=== PATIENT | female | born 1980 | race Caucasian/White ===

== ENCOUNTER → 2016-10-29 | Outpatient (CLI) | payer OTHER ==
[~2016-10-29] MED LIST: ALBUTEROL0.09 MG/A2 IH; AMOXICILLIN500 M2 PO; ANAPROX DS550 MG PO; AUGMENTIN 875 M1 TAB PO; AUGMENTIN 875875 MG PO; BENTYL10 MG PO; BUPROPION HCL300 MG PO; Bactrim Ds 8001 TAB PO; CIPRODEX 0.3%-7.5 ML OT; CITALOPRAM HYDR20 MG PO; CLARITIN10 MG PO; CLINDAMYCIN300 MG PO; DELTASONE10 MG PO; DOXYCYCLINE100 M3 PO; GEMFIBROZIL600 MG PO; HYDROCHLOROTHIA25 MG PO; IBU-8800 MG PO; K-DUR 2020 MEQ PO; MACROBID100 M1 PO; MEDROL DOSEPAK4 MG PO; MIRALAX POWDER255 GM PO; MOTRIN800 MG PO; OMNICEF300 MG PO; PENICILLIN VK500 MG PO; PREDNICOT20 MG PO; PREDNISONE20 M1 PO; PROVENTIL0.09 MG/AC IH; ROBITUSSIN AC 10 MG/ PO; SPRINTEC 35 MCG1 TA1 PO; TRAMADOL HCL50 MG PO; TRAMADOL50 MG PO; TRIMOX500 MG PO; ULTRAM50 MG PO; VIBRAMYCIN100 MG PO; VOLTAREN50 M1 PO; Vicodin 5/500 505 MG PO; XANAX0.25 MG PO; XANAX0.5 MG PO; ZYRTEC10 MG PO
[2016-10-29 10:13] LABS: BASO % 0.4 % (0.0-1.0); EOS # 0.1 10*3/uL (0.0-0.4); HEMATOCRIT 39.3 % (37.0-47.0); HEMOGLOBIN 13.3 g/dl (12.0-16.0); LYMPH # 1.9 10*3/uL (1.3-4.4); MEAN CELL VOLUME 90.3 fl (81.0-99.0); MEAN CORPUSCULAR HGB 30.6 pg (27.0-31.0); MEAN CORPUSCULAR HGB CONC 33.8 g/dl (33.0-37.0); MEAN PLATELET VOLUME 9.1 fl (9.6-12.3); MONO # 0.5 10*3/uL (0.1-1.0); MONO % 9.3 % (3.0-9.0); NEUT # 2.8 10*3/uL (2.3-7.9); NEUT % 51.9 % (47.0-73.0); PLATELET COUNT AUTOMATED 350 10*3/uL (130-400); RED BLOOD COUNT 4.35 10*6/uL (4.10-5.10); RED CELL DISTRI WIDTH 13.8 % (0-14.5); WHITE BLOOD COUNT 5.4 10*3/uL (4.8-10.8)
[2016-10-29 10:29] LABS: HEMOGLOBIN A1c 5.8 % (4.8-5.6)
[2016-10-29 10:48] LABS: ALBUMIN 3.6 gm/dl (3.1-4.5); ALKALINE PHOSPHATASE 61 U/L (45-117); BILIRUBIN, TOTAL 0.2 mg/dl (0.2-1.0); BUN 22 mg/dl (7-24); CARBON DIOXIDE 26 mmol/L (21-32); CHLORIDE 104 mmol/L (98-107); CHOLESTEROL 174 mg/dL (<200); EST GLOM FILT AFRICAN AMERICAN > 60 ml/min; GLUCOSE 102 mg/dL (65-99); HDL CHOLESTEROL 49 mg/dl (40-60); LDL CHOLESTEROL 81 mg/dL (9-159); POTASSIUM 3.9 mmol/L (3.5-5.1); SGOT/AST 9 IU/L (3-35); SGPT/ALT 17 U/L (12-78); SODIUM 141 mmol/L (136-145); TOTAL PROTEIN 7.2 gm/dL (6.4-8.2); TRIGLYCERIDES 218 mg/dl (<150); VLDL CHOLESTEROL 44 mg/dL (6-40)
[2016-10-29 11:18] LABS: PTH INTACT 54.7 pg/mL (14.0-72.0); VITAMIN D, 25-HYDROXY 12.7 ng/mL (30-100)
== END | disposition home or self-care (01) ==
LOC: LAB 09:54
PROVIDERS: Nurse Practitioner Family
DX: E78.4 Other hyperlipidemia (principal); M79.609 Pain in unspecified limb; F32.9 Major depressive disorder, single episode, unspecified; I10 Essential (primary) hypertension; G43.909 Migraine, unspecified, not intractable, without status migrainosus; E55.9 Vitamin D deficiency, unspecified

== ENCOUNTER 2017-01-11 17:04 | Emergency (ER) | payer OTHER ==
[~2017-01-11] VITALS: Ht 162.5 cm; Wt 134.3 kg
[2017-01-11 17:17] VITALS: BP 129/97
[2017-01-11 18:08] LABS: BILIRUBIN NEGATIVE (NEGATIVE); BLOOD 3+ (NEGATIVE); CLARITY CLEAR (CLEAR); COLOR YELLOW (YELLOW); GLUCOSE NEGATIVE (NEGATIVE); KETONE NEGATIVE (NEGATIVE); LEUKO ESTERASE 1+ (NEGATIVE); NITRITE NEGATIVE (NEGATIVE); PH 7.5 (5.0-9.0); PROTEIN NEGATIVE (NEGATIVE); UROBILINOGEN 0.2 E.U./dl (0.2-1.0)
[2017-01-11 18:20] LABS: BACTERIA 4+; RBC TNTC rbc/hpf (0-2); URINE REFLEX COMMENT YES (NO)
[2017-01-11] MEDS ORDERED: CYCLOBENZAPRINE5 M3 PO (20:18)
[2017-01-11] MEDS ORDERED: BACTRIM DS 8001 TA1 PO (20:18)
== END 2017-01-11 20:23 | disposition home or self-care (01) ==
LOC: ED 17:04
PROVIDERS: Nurse Practitioner Family
DX: N30.01 Acute cystitis with hematuria (principal); M54.5 Low back pain; F17.200 Nicotine dependence, unspecified, uncomplicated; Z90.49 Acquired absence of other specified parts of digestive tract; Z79.899 Other long term (current) drug therapy; Z88.1 Allergy status to other antibiotic agents

== ENCOUNTER → 2017-03-23 | Outpatient (CLI) | payer OTHER ==
[~2017-03-23] MED LIST changes: +BACTRIM DS 8001 TA1 PO; +CYCLOBENZAPRINE5 M3 PO
[2017-03-23 10:12] LABS: BASO % 0.3 % (0.0-1.0); EOS # 0.2 10*3/uL (0.0-0.4); EOS % 2.2 % (1.0-4.0); HEMATOCRIT 36.5 % (37.0-47.0); HEMOGLOBIN 12.4 g/dl (12.0-16.0); LYMPH # 1.8 10*3/uL (1.3-4.4); LYMPH % 26.3 % (27.0-41.0); MEAN CELL VOLUME 90.8 fl (81.0-99.0); MEAN CORPUSCULAR HGB 30.8 pg (27.0-31.0); MEAN PLATELET VOLUME 9.2 fl (9.6-12.3); MONO # 0.5 10*3/uL (0.1-1.0); MONO % 6.5 % (3.0-9.0); NEUT # 4.5 10*3/uL (2.3-7.9); NEUT % 64.4 % (47.0-73.0); PLATELET COUNT AUTOMATED 369 10*3/uL (130-400); RED BLOOD COUNT 4.02 10*6/uL (4.10-5.10); RED CELL DISTRI WIDTH 12.9 % (0-14.5); WHITE BLOOD COUNT 6.9 10*3/uL (4.8-10.8)
[2017-03-23 10:46] LABS: ALBUMIN 3.5 gm/dl (3.1-4.5); BUN 20 mg/dl (7-24); CARBON DIOXIDE 28 mmol/L (21-32); CHLORIDE 106 mmol/L (98-107); CHOLESTEROL 185 mg/dL (<200); GLUCOSE 99 mg/dL (65-99); HDL CHOLESTEROL 39 mg/dl (40-60); SODIUM 142 mmol/L (136-145)
[2017-03-23 10:49] LABS: ALKALINE PHOSPHATASE 68 U/L (45-117); BILIRUBIN, TOTAL 0.2 mg/dl (0.2-1.0); EST GLOM FILT AFRICAN AMERICAN > 60 ml/min; LDL CHOLESTEROL 113 mg/dL (9-159); SGOT/AST 10 IU/L (3-35); SGPT/ALT 18 U/L (12-78); TRIGLYCERIDES 165 mg/dl (<150); VLDL CHOLESTEROL 33 mg/dL (6-40)
== END | disposition home or self-care (01) ==
LOC: LAB 09:59
PROVIDERS: Nurse Practitioner Family
DX: E78.4 Other hyperlipidemia (principal); I10 Essential (primary) hypertension

== ENCOUNTER → 2017-03-25 | Outpatient (CLI) | payer OTHER ==
[2017-03-25 11:33] LABS: PTH INTACT 34.1 pg/mL (14.0-72.0)
== END | disposition home or self-care (01) ==
LOC: LAB 09:36
PROVIDERS: Nurse Practitioner Family
DX: E78.4 Other hyperlipidemia (principal); E55.9 Vitamin D deficiency, unspecified

== ENCOUNTER → 2017-03-28 | Outpatient (CLI) | payer OTHER | END | disposition home or self-care (01) | LOC: LAB 13:19 | DX: E87.6 Hypokalemia (principal) ==

== ENCOUNTER → 2017-06-15 | Outpatient (CLI) | payer OTHER | END | disposition home or self-care (01) | LOC: LAB 11:09 | DX: E78.4 Other hyperlipidemia (principal) ==

== ENCOUNTER → 2018-12-12 | Outpatient (CLI) | payer BC ==
[~2018-12-12] MED LIST changes: +ALBUTEROL S5 MG/1 ML INH; +CEFTRIAXONE2 G1 IV; +DURAGESIC1 EAC2 TD; +FLAGYL500 MG PO; +HYDROCHLOROTHIA25 M1 PO; +OXYGEN NAS; +PEPCID AC20 MG PO; +PREDNISONE10 MG PO; +TOBRADEX 0.3-03.5 GM OPH; +VICO10300 PO; +VICODIN 5-3001 EACH PO; +VITAMIN D32000 UNI1 PO
[2018-12-12 10:05] VITALS: BP 146/80
== END | disposition home or self-care (01) ==
LOC: PICC 08:46
DX: Z45.2 Encounter for adjustment and management of vascular access device (principal); A09 Infectious gastroenteritis and colitis, unspecified; F17.210 Nicotine dependence, cigarettes, uncomplicated; J45.909 Unspecified asthma, uncomplicated; E66.01 Morbid (severe) obesity due to excess calories; Z88.1 Allergy status to other antibiotic agents; Z98.890 Other specified postprocedural states; Z82.49 Family history of ischemic heart disease and other diseases of the circulatory system; Z83.3 Family history of diabetes mellitus; Z82.5 Family history of asthma and other chronic lower respiratory diseases; Z84.1 Family history of disorders of kidney and ureter

== ENCOUNTER 2018-12-19 09:58 | Emergency (ER) | payer BC, OTHER ==
[~2018-12-19] VITALS: Wt 141.5 kg
[~2018-12-19 09:58] MED LIST changes: -ALBUTEROL S5 MG/1 ML INH; -CEFTRIAXONE2 G1 IV; -FLAGYL500 MG PO; -HYDROCHLOROTHIA25 M1 PO; -OXYGEN NAS; -PREDNISONE10 MG PO; -TOBRADEX 0.3-03.5 GM OPH; -VICODIN 5-3001 EACH PO; -VITAMIN D32000 UNI1 PO
[2018-12-19 10:00] VITALS: BP 153/100
[2019-01-08] MEDS ORDERED: VICODIN 5-3001 EACH PO (22:36)
[2019-01-08] MEDS ORDERED: OXYGEN NAS (22:37)
[2019-01-08] MEDS ORDERED: ALBUTEROL S5 MG/1 ML INH (22:38)
[2019-01-11] MEDS ORDERED: CEFTRIAXONE2 G1 IV (10:16)
[2019-01-11] MEDS ORDERED: FLAGYL500 MG PO (10:16)
[2019-01-11] MEDS ORDERED: PREDNISONE10 MG PO (14:51)
[2019-01-11] MEDS ORDERED: TOBRADEX 0.3-03.5 GM OPH (14:51)
[2019-01-11] MEDS ORDERED: VITAMIN D32000 UNI1 PO (14:51)
[2019-01-21] MEDS ORDERED: HYDROCHLOROTHIA25 M1 PO (21:54)
== END 2018-12-19 13:23 | disposition home or self-care (01) ==
LOC: ED 09:58
DX: T82.838A Hemorrhage due to vascular prosthetic devices, implants and grafts, initial encounter (principal); J44.9 Chronic obstructive pulmonary disease, unspecified; I10 Essential (primary) hypertension; E66.01 Morbid (severe) obesity due to excess calories; F17.200 Nicotine dependence, unspecified, uncomplicated; Z88.1 Allergy status to other antibiotic agents; Z91.040 Latex allergy status; Z88.8 Allergy status to other drugs, medicaments and biological substances; Y83.8 Other surgical procedures as the cause of abnormal reaction of the patient, or of later complication, without mention of misadventure at the time of the procedure

== ENCOUNTER 2019-01-16 10:22 | Emergency (ER) | payer BC, OTHER ==
[~2019-01-16] VITALS: Ht 160 cm; Wt 143.8 kg
[~2019-01-16 10:22] MED LIST changes: +ALBUTEROL S5 MG/1 ML INH; +CEFTRIAXONE2 G1 IV; +FLAGYL500 MG PO; +OXYGEN NAS; +PREDNISONE10 MG PO; +TOBRADEX 0.3-03.5 GM OPH; +VICODIN 5-3001 EACH PO; +VITAMIN D32000 UNI1 PO
[2019-01-16 10:23] VITALS: BP 152/86
--- NOTE | 2019-01-16 11:31 | NUR ---
20G 10CM POWERGLIDE MIDLINE RIGHT ARM. PT TOLERATED WELL. Jacobo Ricci RN.
[2019-01-16 11:33] LABS: HEMATOCRIT 36.6 % (37.0-47.0); HEMOGLOBIN 11.4 g/dl (12.0-16.0); MEAN CELL VOLUME 89.7 fl (81.0-99.0); MEAN CORPUSCULAR HGB 27.9 pg (27.0-31.0); MEAN CORPUSCULAR HGB CONC 31.1 g/dl (33.0-37.0); MEAN PLATELET VOLUME 9.2 fl (9.6-12.3); PLATELET COUNT AUTOMATED 416 10*3/uL (130-400); RED BLOOD COUNT 4.08 10*6/uL (4.10-5.10); RED CELL DISTRI WIDTH 16.8 % (0-14.5)
[2019-01-16 11:48] LABS: ALBUMIN 3.2 gm/dl (3.1-4.5); ALKALINE PHOSPHATASE 64 U/L (45-117); BUN 24 mg/dl (7-24); CHLORIDE 105 mmol/L (98-107); CREATININE 0.73 mg/dL (0.55-1.02); POTASSIUM 3.2 mmol/L (3.5-5.1); SGOT/AST 14 IU/L (3-35); SGPT/ALT 28 U/L (12-78); SODIUM 141 mmol/L (136-145); TOTAL PROTEIN 6.7 gm/dL (6.4-8.2)
[2019-01-16 11:58] LABS: TOTAL CELLS COUNTED 100 #CELLS
[2019-01-16 11:59] LABS: PLATELET SUFFICIENCY HIGH (NORMAL)
[2019-01-21] MEDS ORDERED: HYDROCHLOROTHIA25 M1 PO (21:54)
== END 2019-01-16 12:18 | disposition home or self-care (01) ==
LOC: ED 10:22
PROVIDERS: Emergency Medicine
DX: T82.898A Other specified complication of vascular prosthetic devices, implants and grafts, initial encounter (principal); J44.9 Chronic obstructive pulmonary disease, unspecified; I10 Essential (primary) hypertension; E66.01 Morbid (severe) obesity due to excess calories; G47.33 Obstructive sleep apnea (adult) (pediatric); F17.200 Nicotine dependence, unspecified, uncomplicated; M19.90 Unspecified osteoarthritis, unspecified site; Z90.49 Acquired absence of other specified parts of digestive tract; Z98.890 Other specified postprocedural states; Z79.899 Other long term (current) drug therapy; Z88.1 Allergy status to other antibiotic agents; Z91.040 Latex allergy status; Z88.8 Allergy status to other drugs, medicaments and biological substances; Y92.89 Other specified places as the place of occurrence of the external cause

== ENCOUNTER → 2019-05-01 | Outpatient (CLI) | payer OTHER ==
[~2019-05-01] MED LIST changes: +HYDROCHLOROTHIA25 M1 PO
[2019-05-01 14:22] LABS: BASO % 0.4 % (0.0-1.0); EOS # 0.1 10*3/uL (0.0-0.4); EOS % 1.7 % (1.0-4.0); HEMATOCRIT 37.5 % (37.0-47.0); HEMOGLOBIN 11.9 g/dl (12.0-16.0); LYMPH # 1.5 10*3/uL (1.3-4.4); LYMPH % 29.3 % (27.0-41.0); MEAN CELL VOLUME 87.6 fl (81.0-99.0); MEAN CORPUSCULAR HGB 27.8 pg (27.0-31.0); MEAN CORPUSCULAR HGB CONC 31.7 g/dl (33.0-37.0); MEAN PLATELET VOLUME 9.2 fl (9.6-12.3); MONO # 0.3 10*3/uL (0.1-1.0); MONO % 6.6 % (3.0-9.0); NEUT # 3.2 10*3/uL (2.3-7.9); NEUT % 61.8 % (47.0-73.0); PLATELET COUNT AUTOMATED 374 10*3/uL (130-400); RED BLOOD COUNT 4.28 10*6/uL (4.10-5.10); RED CELL DISTRI WIDTH 15.5 % (0-14.5); WHITE BLOOD COUNT 5.2 10*3/uL (4.8-10.8)
[2019-05-01 14:53] LABS: ALBUMIN 3.8 gm/dl (3.1-4.5); ALKALINE PHOSPHATASE 62 U/L (45-117); BUN 20 mg/dl (7-24); CHLORIDE 104 mmol/L (98-107); CREATININE 0.71 mg/dL (0.55-1.02); POTASSIUM 3.9 mmol/L (3.5-5.1); SGOT/AST 17 IU/L (3-35); SGPT/ALT 19 U/L (12-78); SODIUM 138 mmol/L (136-145); TOTAL PROTEIN 7.6 gm/dL (6.4-8.2)
== END | disposition home or self-care (01) ==
LOC: LAB 13:37
PROVIDERS: Internal Medicine Infectious Disease
DX: L03.311 Cellulitis of abdominal wall (principal)

== ENCOUNTER → 2019-05-07 | Outpatient (CLI) | payer OTHER ==
[2019-05-07 12:50] LABS: BASO % 0.4 % (0.0-1.0); EOS # 0.2 10*3/uL (0.0-0.4); EOS % 3.3 % (1.0-4.0); HEMATOCRIT 36.6 % (37.0-47.0); HEMOGLOBIN 11.5 g/dl (12.0-16.0); LYMPH # 1.7 10*3/uL (1.3-4.4); LYMPH % 28.9 % (27.0-41.0); MEAN CELL VOLUME 87.1 fl (81.0-99.0); MEAN CORPUSCULAR HGB 27.4 pg (27.0-31.0); MEAN CORPUSCULAR HGB CONC 31.4 g/dl (33.0-37.0); MEAN PLATELET VOLUME 9.5 fl (9.6-12.3); MONO # 0.5 10*3/uL (0.1-1.0); MONO % 7.9 % (3.0-9.0); NEUT # 3.4 10*3/uL (2.3-7.9); NEUT % 58.8 % (47.0-73.0); PLATELET COUNT AUTOMATED 370 10*3/uL (130-400); WHITE BLOOD COUNT 5.7 10*3/uL (4.8-10.8)
[2019-05-07 13:08] LABS: ALBUMIN 3.4 gm/dl (3.1-4.5); ALKALINE PHOSPHATASE 58 U/L (45-117); BUN 13 mg/dl (7-24); CHLORIDE 106 mmol/L (98-107); CHOLESTEROL 179 mg/dL (<200); CREATININE 0.73 mg/dL (0.55-1.02); HDL CHOLESTEROL 39 mg/dl (40-60); IRON 39 ug/dL (50-170); LDL CHOLESTEROL 86 mg/dL (9-159); SGOT/AST 10 IU/L (3-35); SGPT/ALT 19 U/L (12-78); SODIUM 139 mmol/L (136-145); TOTAL IRON BINDING CAPACITY 342 ug/dl (250-450); TOTAL PROTEIN 6.7 gm/dL (6.4-8.2); TRIGLYCERIDES 269 mg/dl (<150); VLDL CHOLESTEROL 54 mg/dL (6-40)
[2019-05-07 13:55] LABS: FERRITIN 95.5 ng/mL (10.0-291.0); VITAMIN D, 25-HYDROXY 22.4 ng/mL (30-100)
== END | disposition home or self-care (01) ==
LOC: LAB 11:49
PROVIDERS: Nurse Practitioner Family
DX: I10 Essential (primary) hypertension (principal); R10.30 Lower abdominal pain, unspecified; G89.18 Other acute postprocedural pain; T81.40XS Infection following a procedure, unspecified, sequela; E78.5 Hyperlipidemia, unspecified; D64.9 Anemia, unspecified; E66.01 Morbid (severe) obesity due to excess calories; E78.2 Mixed hyperlipidemia; Z68.43 Body mass index [BMI] 50.0-59.9, adult

== ENCOUNTER → 2019-09-26 | Outpatient (CLI) | payer BC ==
[2019-09-26 10:10] LABS: BASO % 0.5 % (0.0-1.0); EOS # 0.2 10*3/uL (0.0-0.4); EOS % 2.7 % (1.0-4.0); HEMATOCRIT 39.1 % (37.0-47.0); HEMOGLOBIN 12.3 g/dl (12.0-16.0); LYMPH # 2.1 10*3/uL (1.3-4.4); LYMPH % 31.2 % (27.0-41.0); MEAN CELL VOLUME 85.6 fl (81.0-99.0); MEAN CORPUSCULAR HGB 26.9 pg (27.0-31.0); MEAN CORPUSCULAR HGB CONC 31.5 g/dl (33.0-37.0); MEAN PLATELET VOLUME 9.1 fl (9.6-12.3); MONO # 0.6 10*3/uL (0.1-1.0); MONO % 9.2 % (3.0-9.0); NEUT # 3.7 10*3/uL (2.3-7.9); NEUT % 56.1 % (47.0-73.0); PLATELET COUNT AUTOMATED 338 10*3/uL (130-400); RED BLOOD COUNT 4.57 10*6/uL (4.10-5.10); RED CELL DISTRI WIDTH 16.6 % (0-14.5); WHITE BLOOD COUNT 6.6 10*3/uL (4.8-10.8)
[2019-09-26 10:42] LABS: ALBUMIN 3.7 gm/dl (3.1-4.5); BUN 17 mg/dl (7-24); CHLORIDE 104 mmol/L (98-107); CHOLESTEROL 196 mg/dL (<200); CREATININE 0.76 mg/dL (0.55-1.02); IRON 33 ug/dL (50-170); SGOT/AST 11 IU/L (3-35); SGPT/ALT 19 U/L (12-78); SODIUM 136 mmol/L (136-145); TOTAL IRON BINDING CAPACITY 395 ug/dl (250-450); TOTAL PROTEIN 7.3 gm/dL (6.4-8.2)
[2019-09-26 10:49] LABS: ALKALINE PHOSPHATASE 61 U/L (45-117); HDL CHOLESTEROL 50 mg/dl (40-60); LDL CHOLESTEROL 101 mg/dL (9-159); TRIGLYCERIDES 223 mg/dl (<150); VLDL CHOLESTEROL 45 mg/dL (6-40)
[2019-09-26 11:13] LABS: VITAMIN D, 25-HYDROXY 17.7 ng/mL (30-100)
[2019-09-26 11:14] LABS: FERRITIN 13.4 ng/mL (10.0-291.0)
== END | disposition home or self-care (01) ==
LOC: LAB 09:22
PROVIDERS: Nurse Practitioner Family
DX: I10 Essential (primary) hypertension (principal); E55.9 Vitamin D deficiency, unspecified; D50.8 Other iron deficiency anemias; E53.8 Deficiency of other specified B group vitamins; R73.01 Impaired fasting glucose

== ENCOUNTER → 2019-12-10 | Outpatient (CLI) | payer BC | END | disposition home or self-care (01) | LOC: COVID19 15:46 | DX: B34.9 Viral infection, unspecified (principal); Z03.818 Encounter for observation for suspected exposure to other biological agents ruled out; Z78.9 Other specified health status; Z79.84 Long term (current) use of oral hypoglycemic drugs; Z79.899 Other long term (current) drug therapy ==

== ENCOUNTER → 2021-04-22 | Outpatient (CLI) | payer BC ==
[2021-04-22 08:19] LABS: BASO % 0.4 % (0.0-1.0); EOS # 0.2 10*3/uL (0.0-0.4); EOS % 1.8 % (1.0-4.0); LYMPH % 36.4 % (27.0-41.0); MEAN CELL VOLUME 90.5 fl (81.0-99.0); MEAN CORPUSCULAR HGB 29.5 pg (27.0-31.0); MEAN CORPUSCULAR HGB CONC 32.6 g/dl (33.0-37.0); MEAN PLATELET VOLUME 8.9 fl (9.6-12.3); MONO # 0.6 10*3/uL (0.1-1.0); MONO % 6.9 % (3.0-9.0); NEUT # 4.5 10*3/uL (2.3-7.9); NEUT % 54.1 % (47.0-73.0); PLATELET COUNT AUTOMATED 329 10*3/uL (130-400); RED BLOOD COUNT 4.31 10*6/uL (4.10-5.10); RED CELL DISTRI WIDTH 15.3 % (0-14.5); WHITE BLOOD COUNT 8.3 10*3/uL (4.8-10.8)
[2021-04-22 09:02] LABS: ALBUMIN 3.8 gm/dl (3.1-4.5); ALKALINE PHOSPHATASE 60 U/L (45-117); BUN 18 mg/dl (7-24); CHLORIDE 104 mmol/L (98-107); CHOLESTEROL 230 mg/dL (<200); CREATININE 0.71 mg/dL (0.55-1.02); LDL CHOLESTEROL 139 mg/dL (9-159); POTASSIUM 3.8 mmol/L (3.5-5.1); SGOT/AST 11 IU/L (3-35); SGPT/ALT 25 U/L (12-78); SODIUM 138 mmol/L (136-145); TOTAL PROTEIN 7.4 gm/dL (6.4-8.2); TRIGLYCERIDES 193 mg/dl (<150)
== END | disposition home or self-care (01) ==
LOC: LAB 08:05
PROVIDERS: ATTEND Nurse Practitioner Family
DX: I10 Essential (primary) hypertension (principal); D70.9 Neutropenia, unspecified; E55.9 Vitamin D deficiency, unspecified; E78.2 Mixed hyperlipidemia; D50.8 Other iron deficiency anemias; E88.81 Metabolic syndrome and other insulin resistance

== ENCOUNTER → 2021-07-23 | Outpatient (CLI) | payer BC ==
[2021-07-23 09:34] LABS: BASO % 0.4 % (0.0-1.0); EOS # 0.2 10*3/uL (0.0-0.4); EOS % 2.4 % (1.0-4.0); HEMATOCRIT 40.9 % (37.0-47.0); LYMPH # 1.9 10*3/uL (1.3-4.4); LYMPH % 27.1 % (27.0-41.0); MEAN CELL VOLUME 91.7 fl (81.0-99.0); MEAN CORPUSCULAR HGB 29.6 pg (27.0-31.0); MEAN CORPUSCULAR HGB CONC 32.3 g/dl (33.0-37.0); MONO # 0.5 10*3/uL (0.1-1.0); MONO % 7.1 % (3.0-9.0); NEUT # 4.5 10*3/uL (2.3-7.9); NEUT % 62.4 % (47.0-73.0); PLATELET COUNT AUTOMATED 405 10*3/uL (130-400); RED BLOOD COUNT 4.46 10*6/uL (4.10-5.10); RED CELL DISTRI WIDTH 13.3 % (0-14.5); WHITE BLOOD COUNT 7.2 10*3/uL (4.8-10.8)
[2021-07-23 10:00] LABS: ALBUMIN 3.5 gm/dl (3.1-4.5); ALKALINE PHOSPHATASE 69 U/L (45-117); BUN 10 mg/dl (7-24); CHLORIDE 104 mmol/L (98-107); CHOLESTEROL 220 mg/dL (<200); IRON 63 ug/dL (50-170); LDL CHOLESTEROL 124 mg/dL (9-159); POTASSIUM 4.3 mmol/L (3.5-5.1); SGPT/ALT 30 U/L (12-78); SODIUM 139 mmol/L (136-145); TOTAL IRON BINDING CAPACITY 389 ug/dl (250-450); TOTAL PROTEIN 7.5 gm/dL (6.4-8.2); TRIGLYCERIDES 253 mg/dl (<150)
[2021-07-23 10:02] LABS: CREATININE 0.63 mg/dL (0.55-1.02); SGOT/AST 16 IU/L (3-35)
[2021-07-23 10:39] LABS: FERRITIN 27.9 ng/mL (10.0-291.0); VITAMIN D, 25-HYDROXY 10.1 ng/mL (30-100)
== END | disposition home or self-care (01) ==
LOC: LAB 08:50
PROVIDERS: ATTEND Nurse Practitioner Family
DX: I10 Essential (primary) hypertension (principal); D50.8 Other iron deficiency anemias; E55.9 Vitamin D deficiency, unspecified; E78.2 Mixed hyperlipidemia

== ENCOUNTER → 2021-09-03 | Outpatient (CLI) | payer BC | END | disposition home or self-care (01) | LOC: RAD 13:02 | PROVIDERS: ATTEND Nurse Practitioner Family | DX: J98.11 Atelectasis (principal); R06.2 Wheezing; R05.9 Cough, unspecified ==

== ENCOUNTER → 2021-11-05 | Outpatient (CLI) | payer BC ==
[2021-11-05 13:38] LABS: BASO # 0.1 10*3/uL (0.0-0.1); BASO % 0.6 % (0.0-1.0); EOS # 0.2 10*3/uL (0.0-0.4); EOS % 2.2 % (1.0-4.0); HEMATOCRIT 42.4 % (37.0-47.0); LYMPH # 1.9 10*3/uL (1.3-4.4); LYMPH % 24.8 % (27.0-41.0); MEAN CELL VOLUME 88.9 fl (81.0-99.0); MEAN CORPUSCULAR HGB 28.7 pg (27.0-31.0); MEAN CORPUSCULAR HGB CONC 32.3 g/dl (33.0-37.0); MEAN PLATELET VOLUME 8.9 fl (9.6-12.3); MONO # 0.6 10*3/uL (0.1-1.0); NEUT # 5.1 10*3/uL (2.3-7.9); NEUT % 65.3 % (47.0-73.0); PLATELET COUNT AUTOMATED 395 10*3/uL (130-400); RED BLOOD COUNT 4.77 10*6/uL (4.10-5.10); WHITE BLOOD COUNT 7.8 10*3/uL (4.8-10.8)
[2021-11-05 13:55] LABS: ALKALINE PHOSPHATASE 66 U/L (45-117); BUN 16 mg/dl (7-24); CHLORIDE 101 mmol/L (98-107); CHOLESTEROL 219 mg/dL (<200); CREATININE 0.75 mg/dL (0.55-1.02); LDL CHOLESTEROL 126 mg/dL (9-159); POTASSIUM 4.2 mmol/L (3.5-5.1); SGOT/AST 19 IU/L (3-35); SGPT/ALT 32 U/L (12-78); SODIUM 137 mmol/L (136-145); TOTAL PROTEIN 7.8 gm/dL (6.4-8.2); TRIGLYCERIDES 234 mg/dl (<150)
== END | disposition home or self-care (01) ==
LOC: LAB 13:20
PROVIDERS: ATTEND Nurse Practitioner Family
DX: I10 Essential (primary) hypertension (principal); E78.2 Mixed hyperlipidemia; E55.9 Vitamin D deficiency, unspecified; R73.01 Impaired fasting glucose

== ENCOUNTER → 2022-01-28 | Outpatient (CLI) | payer BC ==
[2022-01-28 12:23] LABS: BASO % 0.6 % (0.0-1.0); EOS # 0.1 10*3/uL (0.0-0.4); EOS % 2.6 % (1.0-4.0); HEMATOCRIT 40.7 % (37.0-47.0); LYMPH # 1.5 10*3/uL (1.3-4.4); LYMPH % 30.5 % (27.0-41.0); MEAN CELL VOLUME 88.1 fl (81.0-99.0); MEAN CORPUSCULAR HGB 28.4 pg (27.0-31.0); MEAN CORPUSCULAR HGB CONC 32.2 g/dl (33.0-37.0); MEAN PLATELET VOLUME 9.3 fl (9.6-12.3); MONO # 0.4 10*3/uL (0.1-1.0); MONO % 7.6 % (3.0-9.0); NEUT # 2.9 10*3/uL (2.3-7.9); NEUT % 58.5 % (47.0-73.0); PLATELET COUNT AUTOMATED 336 10*3/uL (130-400); RED BLOOD COUNT 4.62 10*6/uL (4.10-5.10); RED CELL DISTRI WIDTH 14.5 % (0-14.5)
[2022-01-28 12:42] LABS: ALKALINE PHOSPHATASE 54 U/L (45-117); BUN 17 mg/dl (7-24); CHLORIDE 109 mmol/L (98-107); CHOLESTEROL 178 mg/dL (<200); IRON 54 ug/dL (50-170); LDL CHOLESTEROL 100 mg/dL (9-159); POTASSIUM 3.3 mmol/L (3.5-5.1); SGOT/AST 16 IU/L (3-35); SGPT/ALT 32 U/L (12-78); SODIUM 140 mmol/L (136-145); TOTAL IRON BINDING CAPACITY 381 ug/dl (250-450); TRIGLYCERIDES 189 mg/dl (<150)
[2022-01-28 12:48] LABS: FERRITIN 14.9 ng/mL (10.0-291.0)
== END | disposition home or self-care (01) ==
LOC: LAB 11:57
PROVIDERS: ATTEND Nurse Practitioner Family
DX: E11.9 Type 2 diabetes mellitus without complications (principal); I10 Essential (primary) hypertension; D50.8 Other iron deficiency anemias; E55.9 Vitamin D deficiency, unspecified; E88.81 Metabolic syndrome and other insulin resistance